=== PATIENT | female | born 1945 | race Caucasian/White ===

== ENCOUNTER 2017-05-29 11:32 | Emergency (ER) | payer MEDICARE ==
[2017-05-29] MEDS ORDERED: Adacel Vial IM ONE ×2 (11:52→12:05)
[2017-05-29] MEDS ORDERED: BACIGUENT PACKET TP ONE (11:52)
[2017-05-29] MEDS ORDERED: XYLOCAINE VISCOUS 2% 20 ML CUP PO ONE (11:53)
[2017-05-29 11:58] VITALS: BP 138/57; PULSE 65; O2SAT 96
--- NOTE | 2017-05-29 11:58 | ERPHSYRPT ---
- History of Present Illness Time Seen by Provider: 05/29/17 11:45 Source: patient, family Physician History: CC: dog scratch Hx: 71 y/o patient with hx of hip replacement. She had a dog scratch on right lower leg. She applied tissue to stop bleeding and now can't get the tissue out of the wound. It hurt. She is unsure of last tetanus vaccine. Occurred yesterday. No other complaints. Allergic to PCN. Occurred: yesterday Lower Extremities Pain: leg: right Allergies/Adverse Reactions: Penicillins Allergy (Mild, Verified 08/09/16 20:28) Hives Home Medications: Amlodipine Besylate 5 mg [Norvasc 5 mg] 5 mg PO DAILY 08/09/16 [History] Aspirin/Calcium Carbonate [Aleksey Women's Aspirin Tablet] 1 each PO DAILY [History] Calcium/FA/Multivits-Min [Viactiv Multi-Vitamin Soft Chw] 1 each PO DAILY [History] Cetirizine HCl [Zyrtec] 5 mg PO DAILY 08/09/16 [History] Febuxostat [Uloric] 40 mg PO DAILY 08/09/16 [History] Losartan Potassium 100 mg PO DAILY 08/09/16 [History] Lovastatin 10 mg PO DAILY 08/09/16 [History] Metoprolol Succinate 50 mg [Toprol Xl 50 MG] 50 mg PO DAILY 08/09/16 [ History] Prednisone 2.5 mg PO DAILY 08/09/16 [History] Hx Tetanus, Diphtheria Vaccination/Date Given: Yes (UNSURE) Hx Influenza Vaccination/Date Given: Yes Hx Pneumococcal Vaccination/Date Given: No - Review of Systems Constitutional: No Fever, No Chills Musculoskeletal: Injury, No Back Pain, No Neck Pain Neurological: No Focal Weakness, No Parasthesia - Past Medical History Pertinent Past Medical History: Yes Neurological History: No Pertinent History ENT History: No Pertinent History Cardiac History: High Cholesterol, Hypertension Respiratory History: No Pertinent History Endocrine Medical History: Hypothyroidism, Liver Disease Musculoskeletal History: Arthritis, Osteoarthritis GI Medical History: Other History: Other Female Reproductive Disorders: No Pertinent History Other Medical History: autoimmune liver, born with one kidney, fractured R leg and ankle in the past. - Past Surgical History Past Surgical History: Yes Neuro Surgical History: No Pertinent History Cardiac: No Pertinent History Respiratory: No Pertinent History Gastrointestinal: No Pertinent History Genitourinary: No Pertinent History Musculoskeletal: Orthopedic Surgery Female Surgical History: Other Other Surgical History: MASS RIGHT BREAST-NONMALIGNAT. TUMOR RIGHT OVERY- NONMALIGNANT. RIGHT FOOT SURGERY WITH METAL SCREWS - Social History Smoking Status: Never smoker Exposure to second hand smoke: No Drug Use: none Patient Lives Alone: No - Physical Exam General Appearance: alert Neck Exam: non-tender, supple Cardiovascular/Respiratory Exam: regular rate/rhythm Neuro/Tendon Exam: normal sensation, normal motor functions Mental Status Exam: alert, oriented x 3, cooperative Skin Exam: warm, dry Comments: right lower leg has moderately deep abrasion thru dermis in subcut tissue that is 4 cm X 1 cm. No drng. No cellulitis. Distal pulse good. - Course Nursing assessment & vital signs reviewed: Yes Ordered Tests: Active Orders 24 hr Category Date Time Status Wound Care STAT Care 05/29/17 11:52 Active - Progress Progress Note: 05/29/17 11:56 Will use topical lidocaine to remove the paper tissue and then cleanse wound. She will be treated with doxy and bactroban and dressing changes and was advised to continue support stockings and follow up with primary care in 2-3 days. Counseled pt/family regarding: diagnosis, need for follow-up - Departure Time of Disposition: 11:57 Departure Disposition: Home Clinical Impression: Dog scratch Condition: Stable Critical Care Time: No Referrals: RENAN SHARP [facility] [Primary Care Provider] - Instructions: Care for a Laceration After Repair Additional Instructions: LACERATION CARE 1. Do not use peroxide, merthiolate, alcohol, or betadine. 2. Keep wound clean and dry. 3. Change dressing if it becomes wet or soiled. 4. If you must work, wear protective covering. 5. You may return to the emergency department or see your family physician for suture removal. 6. See your family physician or return to the emergency department for any of the following signs or symptoms: A. Redness B. Swelling C. Discolored drainage D. Red streaks E. Elevated temperature F. Other signs of infection Rx bactroban ointment to use twice a day. Rx doxycycline. Use your support stockings. Follow up with primary care in 2-3 days. Prescriptions: Doxycycline Hyclate [Vibramycin] 1 cap PO BID #14 capsule Mupirocin [Bactroban OINTMENT] 22 gm TP BID #1 tube
[2017-05-29] MEDS ORDERED: XYLOCAINE HCl Viscous ONE (12:04)
[2017-05-29] MEDS ORDERED: BACIGUENT PACKET ONE (12:04)
== END 2017-05-29 12:26 | disposition home or self-care (01) ==
LOC: ED 11:32
DX: S80.811A Abrasion, right lower leg, initial encounter (principal); W54.8XXA Other contact with dog, initial encounter; I10 Essential (primary) hypertension; E78.00 Pure hypercholesterolemia, unspecified; Z79.899 Other long term (current) drug therapy
CPT/HCPCS: 90471; 90715; 99283; A9270-GY

== ENCOUNTER 2018-04-26 16:07 | Emergency (ER) | payer MEDICARE ==
[2018-04-26 16:55] VITALS: BP 177/71; PULSE 65; O2SAT 96
[2018-04-26] MEDS ORDERED: TYLENOL EXTRA STRENGTH 500 MG PO STA (17:57)
[2018-04-26] MEDS ORDERED: TYLENOL EXTRA STRENGTH 500 MG ONE (18:00)
--- NOTE | 2018-04-26 18:04 | ERPHSYRPT ---
- History of Present Illness Time Seen by Provider: 04/26/18 17:25 Source: patient Exam Limitations: no limitations Patient Subjective Stated Complaint: FELL GOING UP TWO STEPS AND LANDED ON RIGHT SIDE. PAIN IN RIGHT UPPER ARM Triage Nursing Assessment: AMBULATED TO ROOM PER SELF. SKIN W/D, COLOR NORMAL. HOLDING RIGHT UPPER ARM. GOOD RADIAL PULSE. HAND WARM AND NORMAL COLOR. Physician History: patient tripped walking up steps resulting in landing on her right shoulder. Incident occurred earlier today. States increase pain to right upper arm as ache, localized and constant's. States pain is worse with movement and decreases with immobilization. Patient did not take any medicine for discomfort. He denies numbness, weakness or tingling distally. Denies any other injuries as well Occurred: this afternoon Method of Injury: fell Quality: constant, aching Severity of Pain-Max: moderate Severity of Pain-Current: mild Extremities Pain Location: shoulder: right, arm: right (upper) Modifying Factors: Improves With: immobilization (improves), movement (worsens) Associated Symptoms: No back pain, No chest discomfort, No chest pain, No neck pain, No short of breath, No vomiting Allergies/Adverse Reactions: Penicillins Allergy (Mild, Verified 04/26/18 16:29) Hives Home Medications: Amlodipine Besylate 5 mg [Norvasc 5 mg] 5 mg PO DAILY 08/09/16 [History] Aspirin/Calcium Carbonate [Aleksey Women's Aspirin Tablet] 1 each PO DAILY [History] Calcium/FA/Multivits-Min [Viactiv Multi-Vitamin Soft Chw] 1 each PO DAILY [History] Cetirizine HCl [Zyrtec] 5 mg PO DAILY 08/09/16 [History] Febuxostat [Uloric] 40 mg PO DAILY 08/09/16 [History] Losartan Potassium 100 mg PO DAILY 08/09/16 [History] Lovastatin 10 mg PO DAILY 08/09/16 [History] Metoprolol Succinate 50 mg [Toprol Xl 50 MG] 50 mg PO DAILY 08/09/16 [ History] predniSONE [Prednisone] 2.5 mg PO DAILY 08/09/16 [History] Hx Tetanus, Diphtheria Vaccination/Date Given: Yes Hx Influenza Vaccination/Date Given: Yes Hx Pneumococcal Vaccination/Date Given: No - Review of Systems Constitutional: No Symptoms, No Fever, No Chills Eyes: No Symptoms Ears, Nose, & Throat: No Symptoms Respiratory: No Symptoms, No Cough, No Dyspnea Cardiac: No Symptoms, No Chest Pain, No Edema, No Syncope Abdominal/Gastrointestinal: No Symptoms, No Abdominal Pain, No Nausea, No Vomiting, No Diarrhea Genitourinary Symptoms: No Symptoms, No Dysuria Musculoskeletal: Joint Pain (right shoulder pain), No Back Pain, No Neck Pain Skin: No Symptoms, No Rash Neurological: No Symptoms, No Dizziness, No Focal Weakness, No Sensory Changes Psychological: No Symptoms Endocrine: No Symptoms Hematologic/Lymphatic: No Symptoms Immunological/Allergic: No Symptoms All Other Systems: Reviewed and Negative - Past Medical History Pertinent Past Medical History: Yes Neurological History: No Pertinent History ENT History: No Pertinent History Cardiac History: High Cholesterol, Hypertension Respiratory History: No Pertinent History Endocrine Medical History: Hypothyroidism, Liver Disease Musculoskeletal History: Arthritis, Osteoarthritis GI Medical History: Other History: Other Female Reproductive Disorders: No Pertinent History Other Medical History: autoimmune liver, born with one kidney, fractured R leg and ankle in the past. - Past Surgical History Past Surgical History: Yes Neuro Surgical History: No Pertinent History Cardiac: No Pertinent History Respiratory: No Pertinent History Gastrointestinal: No Pertinent History Genitourinary: No Pertinent History Musculoskeletal: Orthopedic Surgery Female Surgical History: Other Other Surgical History: MASS RIGHT BREAST-NONMALIGNAT. TUMOR RIGHT OVERY- NONMALIGNANT. RIGHT FOOT SURGERY WITH METAL SCREWS - Social History Smoking Status: Never smoker Exposure to second hand smoke: No Drug Use: none Patient Lives Alone: Yes - Female History Hx Now: No - Nursing Vital Signs Nursing Vital Signs: Initial Vital Signs Temperature 98.5 F 04/26/18 16:25 Pulse Rate 65 04/26/18 16:25 Respiratory Rate 16 04/26/18 16:25 Blood Pressure 177/71 04/26/18 16:25 O2 Sat by Pulse Oximetry 96 04/26/18 16:25 Pain Scale Pain Intensity 9 - Physical Exam General Appearance: alert Eyes, Ears, Nose, Throat Exam: moist mucous membranes Neck Exam: non-tender, supple Cardiovascular/Respiratory Exam: chest non-tender, normal breath sounds, regular rate/rhythm, no respiratory distress Abdominal Exam: non-tender, No guarding Back Exam: normal inspection, No vertebral tenderness Shoulder Exam: bone tenderness (To lateral upper humerus ), limited ROM, soft tissue tenderness, No deformity Elbow/Forearm Exam: normal inspection, non-tender, no evidence of injury Wrist Exam: normal inspection, no evidence of injury, bone tenderness Hand Exam: normal inspection, non-tender, no evidence of injury DTR - Upper Extremity Exam: bicep (R): 2+, bicep (L): 2+, tricep (R): 2+, tricep (L): 2+ Neuro/Tendon Exam: normal sensation, normal motor functions Mental Status Exam: alert, oriented x 3, cooperative Skin Exam: normal color, warm, dry SpO2: 96 Oxygen Delivery: Room Air - Radiology Exams Right Shoulder X-ray Interpretation: Interpreted by me, Negative, No Fracture Ordered Tests: Active Orders 24 hr Category Date Time Status Sling Application STAT Care 04/26/18 17:56 Ordered HUMERUS Stat Exams 04/26/18 17:22 Taken SHOULDER Stat Exams 04/26/18 17:22 Taken - Progress Progress: improved Progress Note: 04/26/18 18:04 Pt. given Tylenol and placed in shoulder sling Counseled pt/family regarding: diagnosis, rad results - Departure Time of Disposition: 18:04 Departure Disposition: Home Clinical Impression: Contusion of shoulder, right Condition: Stable Critical Care Time: No Referrals: RENAN SHARP NP [Primary Care Provider] - Instructions: Contusion (DC), Shoulder Pain (DC) Additional Instructions: ice to any sore areas. May take already prescribed tramadol for pain. Wear sling for 1-2 days. Return for worse pain, swelling, numbness, weakness or any problems
--- NOTE | 2018-04-27 08:39 | XRAY ---
Indication: Pain following fall. Comparison: None 2 views of the right humerus demonstrates moderate AC degenerative arthropathy. No other bony, articular, or soft tissue abnormalities.
--- NOTE | 2018-04-28 13:54 | XRAY ---
Indication: Pain following fall. Comparison: None 3 views of the right shoulder demonstrates moderate AC degenerative arthropathy, mild multilevel spinal degenerative changes, and high riding humeral head as seen in rotator cuff tears. No other bony, articular, or soft tissue abnormalities.
== END 2018-04-26 18:17 | disposition home or self-care (01) ==
LOC: ED 16:07
DX: S40.011A Contusion of right shoulder, initial encounter (principal); M25.511 Pain in right shoulder; W10.9XXA Fall (on) (from) unspecified stairs and steps, initial encounter; Y92.009 Unspecified place in unspecified non-institutional (private) residence as the place of occurrence of the external cause; Z79.899 Other long term (current) drug therapy
CPT/HCPCS: 73030; 73060; 99283; A9270-GY

== ENCOUNTER 2021-01-26 14:30 | Emergency (ER) | payer MEDICARE ==
--- NOTE | 2021-01-26 15:31 | ERPHSYRPT ---
- History of Present Illness Source: patient Exam Limitations: no limitations Patient Subjective Stated Complaint: R knee pain and bilateral lower back pain. Fell Tuesday Triage Nursing Assessment: Pt. A & O x 3, ambulatory. C/o R knee pain. No swelling or bruising noted to knee. C/o lower back pain. No deformities or bruising noted. VSS.Skin PWD. Physician History: 75 yo wf fell on 12/24/20 on her back onto rug covered concrete. Pt complains of RLQ pain/R flank-R CVA pain. She had a HOFFMANN for several days after her fall w possible LOC. C-spine is nttp. Occurred: other (12/24/20) Reason for Fall: tripped Injuries/Pain Location: head, abdomen, back Loss of Consciousness: brief (seconds) Quality: aching, throbbing Severity of Pain-Max: severe Severity of Pain-Current: severe Modifying Factors: Improves With: movement Associated Symptoms (Fall): abdominal pain, back pain, No confusion, No chest pain, No dizziness, No extremity injury, No headache, No lightheadedness, No muscle spasms, No nausea, No neck pain, No ringing in ears, No seizures, No shortness of breath, No slurred speech, No trouble walking, No vomiting, No vision changes Allergies/Adverse Reactions: Penicillins Allergy (Mild, Verified 04/26/18 16:29) Hives Home Medications: Amlodipine Besylate 5 mg [Norvasc 5 mg] 5 mg PO DAILY 08/09/16 [History] Aspirin/Calcium Carbonate [Aleksey Women's Aspirin Tablet] 1 each PO DAILY 08/09/16 [History] Calcium/FA/Multivits-Min [Viactiv Multi-Vitamin Soft Chw] 1 each PO DAILY 08/09/16 [History] Cetirizine HCl [Zyrtec] 5 mg PO DAILY 08/09/16 [History] Losartan Potassium 100 mg PO DAILY 08/09/16 [History] Lovastatin 10 mg PO DAILY 08/09/16 [History] Metoprolol Succinate 50 mg [Toprol Xl 50 MG] 100 mg PO DAILY 08/09/16 [History] Latanoprost 1 ea OP HS 04/26/18 [History] Metoprolol Succinate 50 mg [Toprol Xl 50 MG] 50 mg PO HS 04/26/18 [History] Hx Tetanus, Diphtheria Vaccination/Date Given: Yes Hx Influenza Vaccination/Date Given: Yes Hx Pneumococcal Vaccination/Date Given: No Travel Risk - International Travel Have you traveled outside of the country in past 3 weeks: No - Coronavirus Screening Are you exhibiting any of the following symptoms?: No Close contact with a COVID-19 positive Pt in past 14-21 Days: No - Review of Systems Constitutional: No Symptoms Eyes: No Symptoms Ears, Nose, & Throat: No Symptoms Respiratory: No Symptoms Cardiac: No Symptoms Abdominal/Gastrointestinal: No Symptoms, Abdominal Pain Genitourinary Symptoms: No Symptoms Musculoskeletal: No Symptoms, Back Pain Skin: No Symptoms Neurological: No Symptoms Psychological: No Symptoms Endocrine: No Symptoms Hematologic/Lymphatic: No Symptoms Immunological/Allergic: No Symptoms - Past Medical History Pertinent Past Medical History: Yes Neurological History: No Pertinent History ENT History: No Pertinent History Cardiac History: High Cholesterol, Hypertension Respiratory History: No Pertinent History Endocrine Medical History: Hypothyroidism, Liver Disease Musculoskeletal History: Arthritis, Osteoarthritis GI Medical History: Other History: Other Female Reproductive Disorders: No Pertinent History Other Medical History: autoimmune liver, born with one kidney, fractured R leg and ankle in the past. - Past Surgical History Past Surgical History: Yes Neuro Surgical History: No Pertinent History Cardiac: No Pertinent History Respiratory: No Pertinent History Gastrointestinal: No Pertinent History Genitourinary: No Pertinent History Musculoskeletal: Orthopedic Surgery Female Surgical History: Other Other Surgical History: MASS RIGHT BREAST-NONMALIGNAT. TUMOR RIGHT OVERY- NONMALIGNANT. RIGHT FOOT SURGERY WITH METAL SCREWS - Social History Smoking Status: Never smoker Exposure to second hand smoke: No Drug Use: none Patient Lives Alone: Yes Significant Family History: no pertinent family hx - Female History Hx Now: No - Nursing Vital Signs Nursing Vital Signs: Initial Vital Signs Temperature 98.2 F 01/26/21 14:59 Pulse Rate 60 01/26/21 14:59 Respiratory Rate 18 01/26/21 14:59 Blood Pressure 163/71 01/26/21 14:59 O2 Sat by Pulse Oximetry 94 L 01/26/21 14:59 Pain Scale Pain Intensity 4 - Jason Coma Score Best Eye Response ([place]): (4) open spontaneously Best Verbal Response ([place]): (5) oriented Best Motor Response (Jason): (6) obeys commands [place] Total: 15 - Physical Exam General Appearance: no apparent distress Head Injury: no evidence of injury Eye Exam: PERRL/EOMI, eyes nml inspection ENT Exam: airway nml, No evidence of ENT injury Neck Exam: supple, trachea midline (C-spine NTTP) Respiratory/Chest Exam: normal breath sounds, No chest tenderness, No respiratory distress Cardiovascular Exam: normal heart sounds, regular rate/rhythm, No murmur Gastrointestinal Exam: soft, tenderness (RLQ TTP/No guarding or rebound) Back Exam: CVA tenderness (R CVA TTP) Extremity Exam: normal inspection, normal range of motion, pelvis stable, No deformities Neurologic Exam: alert, oriented x 3, cooperative, fisher line II-XII nml as tested, normal mood/affect, sensation nml, No motor deficits, No sensory deficit Skin Exam: normal color SpO2 Interpretation: normal SpO2: 94 O2 Delivery: Room Air - Course Nursing assessment & vital signs reviewed: Yes - CT Exams Head CT Interpretation: Discussed w/radiologist (Nothing acute) Abdomen/Pelvis CT Interpretation: Discussed w/radiologist (T12 endplate fx) Ordered Tests: Active Orders 24 hr Category Date Time Status ABDOMEN AND PELVIS W/0 CONTRAS [CT] Stat Exams 01/26/21 15:25 Completed HEAD WITHOUT CONTRAST [CT] Stat Exams 01/26/21 15:25 Completed Medication Summary Discontinued Medications Generic Name Dose Route Start Last Admin Trade Name Shyanne PRN Reason Stop Dose Admin Hydrocodone Bitart/Acetaminophen 2 tab 01/26/21 17:22 01/26/21 17:33 [place] 5/325 Mg PO 01/26/21 17:23 2 tab STAT ONE Administration Hydrocodone Bitart/Acetaminophen Confirm 01/26/21 17:32 [place] 5/325 Mg Administered 01/26/21 17:33 Dose 2 tab .ROUTE .STK-MED ONE - Progress Progress: improved Progress Note: 01/26/21 17:24 Norco10 po x1 Counseled pt/family regarding: need for follow-up, rad results - Departure Departure Disposition: Home Clinical Impression: T12 endplate fracture Condition: Stable Critical Care Time: No Referrals: RENAN SHARP NP [Primary Care Provider] - Instructions: Vertebral Compression Fracture (DC) Additional Instructions: Pain meds as needed Follow up with your family MD Activity as tolerated Return to ER as needed Prescriptions: Hydrocodone/Acetaminophen [Hydrocodone-Acetamin 5-325 mg ] 1 each PO Q4HPRN PRN #8 tablet MDD 3 tabs PRN Reason: Pain
[2021-01-26 16:04] VITALS: BP 141/65; PULSE 59
--- NOTE | 2021-01-26 16:19 | XRAY ---
Indication: Status post fall 5 days ago. Multiple contiguous axial images obtained through the head without contrast. Comparison: None Age-appropriate global atrophy. No acute intracranial hemorrhage, abnormal extra-axial fluid collection, or mass effect. Incidental 6 mm anterior interhemispheric lipoma. Fourth ventricle is midline without hydrocephalus. Horn-white matter differentiation preserved. Bony calvarium intact. Incidental 1 cm left frontal scalp calcified sebaceous cyst. Visualized paranasal sinuses and mastoid air cells are clear. Impression: No acute intracranial abnormalities. Incidental findings as above.
--- NOTE | 2021-01-26 16:25 | XRAY ---
Indication: Right lower quadrant abdomen and right back pain. Status post fall 5 days ago. Multiple contiguous axial images obtained through the abdomen and pelvis without contrast. Comparison: None Lung bases demonstrates mild bibasilar atelectasis/scarring and small left lower lobe calcified granuloma. Heart is not enlarged. Small hiatal hernia. Right hip prosthesis produces beam artifact limiting these levels. Noncontrasted stomach and bowel loops appear nonobstructed. Appendectomy, right nephrectomy, and hysterectomy reported. Sigmoid diverticulosis without diverticulitis. No free fluid/air. Mild diffuse fatty liver and tiny hepatic/splenic calcified granulomas. Remaining liver, gallbladder, pancreas, spleen, adrenal glands, left kidney, left ureter, and urinary bladder unremarkable for noncontrast exam. Mild scattered aortoiliac calcifications without AAA. Osseous structures intact with inferior T12 endplate fracture with less than 10% height loss. Elsewhere osteopenia, mild/moderate multilevel degenerative spondylosis, bilateral L5 spondylolysis, and grade 1 spondylolisthesis of L4 and L5 on S1. Small left inguinal hernia with herniated knuckle of bowel loop without complications. Impression: 1. Beam artifact from right hip prosthesis. 2. T12 inferior endplate fracture with less than 10% height loss. Also osteopenia, multilevel degenerative spondylosis, grade 1 L4-S1 spondylolisthesis, and L5 spondylolysis. 3. Incidental small hiatal hernia, sigmoid diverticulosis, left inguinal hernia, and old granulomatous disease.
[2021-01-26] MEDS ORDERED: NORCO 5/325 MG PO ONE (17:22)
[2021-01-26 17:30] VITALS: O2SAT 94
[2021-01-26] MEDS ORDERED: NORCO 5/325 MG ONE (17:32)
== END 2021-01-26 17:39 | disposition home or self-care (01) ==
LOC: ED 14:30
DX: S22.089A Unspecified fracture of T11-T12 vertebra, initial encounter for closed fracture (principal); W19.XXXA Unspecified fall, initial encounter; R10.31 Right lower quadrant pain; M25.561 Pain in right knee; M54.5 Low back pain; Z79.899 Other long term (current) drug therapy; I10 Essential (primary) hypertension; E78.00 Pure hypercholesterolemia, unspecified; E03.9 Hypothyroidism, unspecified; K76.9 Liver disease, unspecified
CPT/HCPCS: 70450; 74176; 99283; A9270-GY